=== PATIENT | female | born 1965 | race Caucasian/White ===

== ENCOUNTER 2024-04-01 10:30 | Emergency (ER) | payer BC, OTHER ==
[2024-04-01] MEDS ORDERED: Acetaminophen 325 MG TAB ONE (11:03)
== END 2024-04-01 13:13 | disposition short-term general hospital (02) ==
LOC: ERS 10:30
DX: S62.320A Displaced fracture of shaft of second metacarpal bone, right hand, initial encounter for closed fracture (principal); S62.322A Displaced fracture of shaft of third metacarpal bone, right hand, initial encounter for closed fracture; V43.62XA Car passenger injured in collision with other type car in traffic accident, initial encounter
CPT/HCPCS: 71045

== ENCOUNTER 2024-04-06 14:50 | Outpatient (CLI) | payer BC ==
[2024-04-06 16:03] LABS: #Basophils 0.07 10x3/uL (0.0-0.2); %Basophils 0.9 % (0.0-1.0); %Eosinophils 3.2 % (0.0-10.0); %Lymphocytes 35.8 % (21.0-51.0); %Monocytes 5.9 % (0.0-10.0); %Neutrophils 53.9 % (42.0-75.0); Hematocrit 41.7 % (36.0-47.0); Hemoglobin 13.8 g/dL (12.0-16.0); Mean Corpuscular HGB CONC 33.1 g/dL (32.0-36.0); Mean Corpuscular Hemoglobin 30.2 pg (27.0-31.0); Mean Corpuscular Volume 91.2 fL (78.0-98.0); Mean Platelet Volume 11.5 fL (7.4-10.4); Platelet Count 227 10x3/uL (130-400); RBC Distribution Width 12.9 % (11.5-14.5); Red Blood Cell (RBC) Count 4.57 mill/uL (4.20-5.40)
[2024-04-06 16:24] LABS: Anion Gap 10 mmol/L (10-20); BUN (Urea Nitrogen) 21 mg/dL (9.8-20.1); Calc. Creatinine Clearance 0 mL/min (70-130); Calcium 8.9 mg/dL (7.8-10.44); Carbon Dioxide 22 mmol/L (23-31); Chloride 115 mmol/L (98-107); Estimated GFR 84; Glucose 100 mg/dL (80-115); Potassium 3.7 mmol/L (3.5-5.1); Sodium 143 mmol/L (136-145)
== END 2024-04-06 14:51 | disposition home or self-care (01) ==
LOC: LABBT 14:50
PROVIDERS: ATTEND Orthopaedic Surgery
DX: Z01.818 Encounter for other preprocedural examination (principal); S62.300A Unspecified fracture of second metacarpal bone, right hand, initial encounter for closed fracture; S62.302A Unspecified fracture of third metacarpal bone, right hand, initial encounter for closed fracture
CPT/HCPCS: 80048; 85025; 93005; 93010

== ENCOUNTER 2025-06-07 09:08 | Outpatient (CLI) | payer BC ==
[2025-06-07 09:57] LABS: #Basophils 0.04 10x3/uL (0.0-0.2); #Eosinophils 0.15 10x3/uL (0.0-0.7); #Monocytes 0.49 10x3/uL (0.11-0.59); #Neutrophils 3.29 10x3/uL (1.40-6.50); %Basophils 0.6 % (0.0-1.0); %Eosinophils 2.1 % (0.0-10.0); %Lymphocytes 42.8 % (21.0-51.0); %Monocytes 7.0 % (0.0-10.0); %Neutrophils 47.2 % (42.0-75.0); Hematocrit 43.4 % (36.0-47.0); Hemoglobin 14.1 g/dL (12.0-16.0); Mean Corpuscular Hemoglobin 29.5 pg (27.0-31.0); Mean Corpuscular Volume 90.8 fL (78.0-98.0); Platelet Count 243 10x3/uL (130-400); Red Blood Cell (RBC) Count 4.78 mill/uL (4.20-5.40); White Blood Cell (WBC) Count 6.98 10x3/uL (4.8-10.8)
[2025-06-07 10:11] LABS: Anion Gap 15 mmol/L (10-20); BUN (Urea Nitrogen) 19 mg/dL (9.8-20.1); Calc. Creatinine Clearance 0 mL/min (70-130); Calcium 9.1 mg/dL (7.8-10.44); Carbon Dioxide 22 mmol/L (23-31); Chloride 110 mmol/L (98-107); Glucose 95 mg/dL (80-115); Potassium 4.0 mmol/L (3.5-5.1); Sodium 143 mmol/L (136-145)
== END 2025-06-07 09:09 | disposition home or self-care (01) ==
LOC: LABBT 09:08
PROVIDERS: ATTEND Orthopaedic Surgery
DX: Z01.818 Encounter for other preprocedural examination (principal); M24.541 Contracture, right hand
CPT/HCPCS: 80048; 85025; 93005; 93010

== ENCOUNTER 2025-06-14 06:32 | Day surgery (SDC) | payer BC ==
[2025-06-07 09:20] VITALS: BMI 31.1
[2025-06-14] MEDS ORDERED: Lidocaine 1% PF 5 ML VIAL ONE (06:42)
[2025-06-14] MEDS ORDERED: Ondansetron PF 4 MG/2 ML Vial ONE (06:42)
[2025-06-14] MEDS ORDERED: fentaNYL PF 100 MCG/2 ML SYRINGE ONE (06:45)
[2025-06-14] MEDS ORDERED: Scopolamine 1 mg/72 hour Patch ONE (07:34)
[2025-06-14] MEDS ORDERED: Acetaminophen 500 MG TAB ONE (07:34)
[2025-06-14] MEDS ORDERED: PROPOFOL 200 MG/20 ML VIAL ONE (08:14)
== END 2025-06-14 11:26 | disposition home or self-care (01) ==
LOC: SDC 06:32
PROVIDERS: ATTEND Orthopaedic Surgery
PROC: 0RP Upper Joints, Removal (ICD-10-PCS; principal; 2025-06-14)
DX: T84.84XA Pain due to internal orthopedic prosthetic devices, implants and grafts, initial encounter (principal); G47.30 Sleep apnea, unspecified; Z90.49 Acquired absence of other specified parts of digestive tract; Z90.710 Acquired absence of both cervix and uterus; Z98.890 Other specified postprocedural states; Z88.1 Allergy status to other antibiotic agents; Z88.8 Allergy status to other drugs, medicaments and biological substances; Z91.018 Allergy to other foods; Y83.1 Surgical operation with implant of artificial internal device as the cause of abnormal reaction of the patient, or of later complication, without mention of misadventure at the time of the procedure
CPT/HCPCS: J1100; J2405; J2550; J2704